=== PATIENT | female | born 1965 | race Caucasian/White ===

== ENCOUNTER 2016-11-12 06:40 | Day surgery (SDC) | payer OTHER ==
[2016-11-12] MEDS ORDERED: Propofol 200 MG/20 ML SDV ONE (07:03)
[2016-11-12] MEDS ORDERED: Rocuronium 10 MG/ML 10 ML Syringe ONE (07:03)
[2016-11-12] MEDS ORDERED: Dexamethasone 4 MG/ML 5 ML MDV ONE (07:03)
[2016-11-12] MEDS ORDERED: Ondansetron 4 MG/2 ML SDV ONE (07:03)
[2016-11-12] MEDS ORDERED: fentaNYL 250 MCG/5 ML SDV ONE (07:04)
[2016-11-12] MEDS: Lactated Ringers 1,000 ML IV SCH ×2 (07:04→16:41)
[2016-11-12] MEDS ORDERED: HYDROmorphone 2 MG/ML Syringe ONE (07:04)
[2016-11-12] MEDS ORDERED: Midazolam 1 MG/ML 2 ML SDV ONE (07:04)
[2016-11-12] MEDS ORDERED: Lidocaine 2% 5 ML SDV ONE (07:05)
[2016-11-12] MEDS ORDERED: Ketorolac 30 MG/ML SDV ONE (07:08)
--- NOTE | 2016-11-12 07:09 | PCM.PREANE ---
Preanesthetic Assessment - Anesthesia/Transfusion/Family Hx Anesthesia History: No Prior Anesthesia Family History of Anesthesia Reaction: No Transfusion History: No Prior Transfusion(s) Intubation History: Unknown - Review of Systems General: No Symptoms Pulmonary: No Symptoms Cardiovascular: No Symptoms Gastrointestinal: No symptoms Neurological: No Symptoms Other: Reports: None - Physical Assessment O2 Sat by Pulse Oximetry: 98 Respiratory Rate: 16 Vital Signs: Last Vital Signs Temp 37.0 C 11/12/16 07:02 Pulse 64 11/12/16 07:02 Resp 16 11/12/16 07:02 BP 142/82 H 11/12/16 07:02 Pulse Ox 98 11/12/16 07:02 Height: 1.66 m Weight: 91.626 kg ASA Class: 2 Mental Status: Alert & Oriented x3 Airway Class: Mallampati = 2 Dentition: Reports: Normal Dentition, [place](s) (x2 upper front) Thyro-Mental Finger Breadths: 3 Mouth Opening Finger Breadths: 3 ROM/Head Extension: Full Lungs: Clear to auscultation, Normal respiratory effort Cardiovascular: Regular Rate, Regular Rhythm - Allergies Allergies/Adverse Reactions: Allergies Allergy/AdvReac Type Severity Reaction Status Date / Time MSG Allergy Joint Pain Uncoded 11/07/16 10:03 - Blood Blood Available: No - Anesthesia Plan Pre-Op Medication Ordered: None - Acknowledgements Anesthesia Type Planned: General Anesthesia Pt an Appropriate Candidate for the Planned Anesthesia: Yes Alternatives and Risks of Anesthesia Discussed w Pt/Guardian: Yes Pt/Guardian Understands and Agrees with Anesthesia Plan: Yes PreAnesthesia Questionnaire HEENT History: Reports: Other (See Below) Other HEENT History: reading glasses, contacts Gastrointestinal History: Reports: Other (See Below) Other Gastrointestinal History: occasional heartburn 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, Endocrine/Metabolic History: Reports: Obesity/BMI 30+ Hematologic History: Reports: Anemia - Past Surgical History Head Surgeries/Procedures: Reports: None - SUBSTANCE USE Smoking Status *Q: Never Smoker Recreational Drug Use History: No - HOME MEDS Home Medications: Home Meds Acetaminophen/Diphenhydramine [Tylenol Pm Ex-Strength Caplet] 1 - 2 tab PO BEDTIME PRN 11/07/16 [History] Ferrous Gluconate 2 tab PO DAILY 11/07/16 [History] Multivitamin [Multivitamins] 1 tab PO DAILY 11/07/16 [History] Temazepam [Restoril] 30 mg PO BEDTIME PRN 11/07/16 [History] diphenhydrAMINE [Benadryl] 25 mg PO BEDTIME PRN 11/07/16 [History] - CURRENT (IN HOUSE) MEDS Current Meds: Current Medications Lactated Ringer's (Ringers, Lactated) 1,000 mls @ 125 mls/hr IV ASDIRECTED ANIKET Last Admin: 11/12/16 07:04 Dose: 125 mls/hr Discontinued Medications Dexamethasone (Dexamethasone) Confirm Administered Dose 20 mg .ROUTE .STK-MED ONE Stop: 11/12/16 07:04 Ondansetron HCl (Zofran) Confirm Administered Dose 4 mg .ROUTE .STK-MED ONE Stop: 11/12/16 07:04 Rocuronium [place] (Zemuron) Confirm Administered Dose 100 mg .ROUTE .STK-MED ONE Stop: 11/12/16 07:04
[2016-11-12] MEDS ORDERED: Sodium Chloride 0.9% 20 ML ONE (07:11)
[2016-11-12] MEDS ORDERED: Fluorescein 5 ML Vial ONE (07:26)
[2016-11-12 07:46] LABS: CHLORIDE,CL 108 mmol/L (98-110); SODIUM,NA 137 mmol/L (136-146)
[2016-11-12] MEDS ORDERED: fentaNYL 100 MCG/2 ML SDV IVPUSH PRN (08:41)
[2016-11-12] MEDS ORDERED: Furosemide 40 MG/4 ML VIAL ONE (09:26)
[2016-11-12] MEDS ORDERED: Belladonna Alkaloids/Opium 16.2-30 MG Supp RECTAL ONE (09:58)
[2016-11-12] MEDS ORDERED: Meperidine PF 25 MG/ML Syringe SUBCUT ONE (10:01)
[2016-11-12] MEDS ORDERED: Promethazine 25 MG/ML SDV IM PRN (10:02)
[2016-11-12] MEDS ORDERED: Ketorolac 30 MG/ML SDV IVPUSH ONE (10:02)
[2016-11-12] MEDS ORDERED: LORazepam 2 MG/ML MDV IVPUSH PRN (10:02)
[2016-11-12] MEDS ORDERED: Ondansetron 4 MG/2 ML SDV IVPUSH PRN (10:02)
[2016-11-12] MEDS ORDERED: HYDROmorphone 2 MG/ML Syringe IVPUSH PRN (10:02)
--- NOTE | 2016-11-12 10:02 | PCM.OPNOTE ---
- General Post-Op/Procedure Note Date of Surgery/Procedure: 11/12/16 Operative Procedure(s): total vaginal hysterectomy with bilateral salpingectomy and cystoscopy Findings: uterus 12 week size, with multiple fibroids, soft and boggy, normal appearing tubes and ovaries, Bladder mucosa appears normal with copious flow of urine from bilateral ureteral orifices. Pre Op Diagnosis: menorhagia with anemia, uterine fibroids. Post-Op Diagnosis: Same Anesthesia Technique: General ET tube Primary Surgeon: Vianney Phelan Secondary Surgeon: Amy Waldron Anesthesia Provider: Donavon Joaquin Bridge Contractor: Breann Alva Pathology: Uterus, right fallopian tube, left fallopian tube. Fluid Replacement, Intraop: 1,800 EBL in mLs: 150 Complications: None Known Condition: Good
[2016-11-12] MEDS ORDERED: Meperidine PF 50 MG/ML Syringe ONE (10:04)
[2016-11-12] MEDS ORDERED: Meperidine PF 25 MG/ML Syringe IVPUSH ONE (10:25)
--- NOTE | 2016-11-12 10:29 | PCM.POSTAN ---
POST ANESTHESIA ASSESSMENT - MENTAL STATUS Mental Status: alert, oriented - RESPIRATORY Respiratory Status: respiratory rate WNL, airway patent, O2 saturation stable - CARDIOVASCULAR CV Status: pulse rate WNL, blood pressure stable - GASTROINTESTINAL GI Status: no symptoms - PAIN Pain Score: 5 - POST OP HYDRATION Hydration Status: adequate & stable - OBSERVATIONS Free Text/Narrative:: no anesthesia problems
[2016-11-12] MEDS: Acetaminophen/oxyCODONE 325-5 MG Tab PO PRN ×3 (12:16→20:47)
[2016-11-12] MEDS: Ketorolac 30 MG/ML SDV IVPUSH SCH ×3 (14:06→22:24)
[2016-11-12 16:26] LABS: CHLORIDE,CL 107 mmol/L (98-110); SODIUM,NA 136 mmol/L (136-146)
--- NOTE | 2016-11-12 17:14 | PCM.SURGPN ---
- General Info Date of Service: 11/12/16 POD#: 0 Post-Op Diagnosis: uterine fibroids, menorrhagia with anemia Functional Status: Reports: pain controlled (catheter is bothersome toher.), tolerating diet. Denies: ambulating, urinating - Review of Systems General: Reports: No Symptoms HEENT: Reports: no symptoms Pulmonary: Reports: no symptoms Cardiovascular: Reports: No Symptoms Gastrointestinal: Reports: No symptoms Genitourinary: Reports: no symptoms Musculoskeletal: Reports: no symptoms Skin: Reports: no symptoms Neurological: Reports: No Symptoms Psychiatric: Reports: no symptoms - Patient Data Vitals - most recent: Last Vital Signs Temp 36.5 C 11/12/16 12:05 Pulse 50 L 11/12/16 12:05 Resp 15 11/12/16 12:05 BP 125/66 11/12/16 12:05 Pulse Ox 96 11/12/16 12:05 Weight - most recent: 91.626 kg I&O - last 24 hours: Intake & Output 11/12/16 11/12/16 11/12/16 06:59 14:59 22:59 Intake Total 3900 Output Total 700 Balance 3200 Lab Results last 24 hrs: Laboratory Results - last 24 hr 11/12/16 11/12/16 11/12/16 Range/Units 07:00 07:00 07:00 WBC 7.92 (4.0-11.0) K/uL RBC 4.51 (4.30-5.90) M/uL Hgb 10.1 L (12.0-16.0) g/dL Hct 33.5 L (36.0-46.0) % MCV 74.3 L (80.0-98.0) fL MCH 22.4 L (27.0-32.0) pg MCHC 30.1 L (31.0-37.0) g/dL RDW Std Deviation 60.4 (28.0-62.0) fl RDW Coeff of Mary 22 H (11.0-15.0) % Plt Count 385 (150-400) K/uL MPV 8.60 (7.40-12.00) fL Add Manual Diff Neutrophils % (Manual) (48.0-80.0) % Band Neutrophils % % Lymphocytes % (Manual) (16.0-40.0) % Monocytes % (Manual) (0.0-15.0) % Nucleated RBC % 0.0 /100WBC Absolute Seg Neuts Band Neutrophils # Lymphocytes # (Manual) Monocytes # (Manual) Nucleated RBCs # 0 K/uL Sodium 137 (136-146) mmol/L Potassium 3.9 (3.5-5.1) mmol/L Chloride 108 (98-110) mmol/L Carbon Dioxide 21 (21-31) mmol/L BUN 11 (6.0-23.0) mg/dL Creatinine 0.7 (0.6-1.5) mg/dL Est Cr Clr Drug Dosing 87.28 mL/min Estimated GFR (MDRD) > 60.0 ml/min Glucose 91 (60-110) mg/dL Calcium 8.4 L (8.8-10.8) mg/dL HCG, Qual NEGATIVE (NEG) Blood Type Antibody Screen 11/12/16 11/12/16 11/12/16 Range/Units 07:00 16:00 16:00 WBC 18.41 H (4.0-11.0) K/uL RBC 3.95 L (4.30-5.90) M/uL Hgb 9.0 L (12.0-16.0) g/dL Hct 29.5 L (36.0-46.0) % MCV 74.7 L (80.0-98.0) fL MCH 22.8 L (27.0-32.0) pg MCHC 30.5 L (31.0-37.0) g/dL RDW Std Deviation 60.7 (28.0-62.0) fl RDW Coeff of Mary 22 H (11.0-15.0) % Plt Count 318 (150-400) K/uL MPV 8.40 (7.40-12.00) fL Add Manual Diff YES Neutrophils % (Manual) 91 H (48.0-80.0) % Band Neutrophils % 7 % Lymphocytes % (Manual) 1 L (16.0-40.0) % Monocytes % (Manual) 1 (0.0-15.0) % Nucleated RBC % 0.0 /100WBC Absolute Seg Neuts 16.8 Band Neutrophils # 1.3 Lymphocytes # (Manual) 0.2 Monocytes # (Manual) 0.2 Nucleated RBCs # 0 K/uL Sodium 136 (136-146) mmol/L Potassium 4.3 (3.5-5.1) mmol/L Chloride 107 (98-110) mmol/L Carbon Dioxide 21 (21-31) mmol/L BUN 10 (6.0-23.0) mg/dL Creatinine 0.7 (0.6-1.5) mg/dL Est Cr Clr Drug Dosing 87.28 mL/min Estimated GFR (MDRD) > 60.0 ml/min Glucose 119 H (60-110) mg/dL Calcium 8.4 L (8.8-10.8) mg/dL HCG, Qual (NEG) Blood Type O POSITIVE Antibody Screen NEGATIVE Med Orders - Current: Current Medications Fentanyl (Sublimaze) 50 mcg IVPUSH Q5M PRN PRN Reason: Pain (severe 7-10) Stop: 11/13/16 08:41 Hydromorphone HCl (Dilaudid) 0.2 mg IVPUSH Q2H PRN PRN Reason: Pain (severe 7-10) Lactated Ringer's (Ringers, Lactated) 1,000 mls @ 125 mls/hr IV ASDIRECTED [facility] Last Admin: 11/12/16 16:41 Dose: 125 mls/hr Ketorolac Tromethamine (Toradol) 30 mg IVPUSH Q6H [facility] Stop: 11/17/16 10:06 Last Admin: 11/12/16 16:30 Dose: 30 mg Lorazepam (Ativan) 1 mg IVPUSH Q4H PRN PRN Reason: Anxiety Last Admin: 11/12/16 15:01 Dose: 1 mg Ondansetron HCl (Zofran) 4 mg IVPUSH Q6H PRN PRN Reason: Nausea/Vomiting Oxycodone/Acetaminophen (Percocet 325-5 Mg) 1 tab PO Q4H PRN PRN Reason: Pain (moderate 4-6) Last Admin: 11/12/16 16:40 Dose: 1 tab Promethazine HCl (Phenergan) 25 mg IM Q6H PRN PRN Reason: Nausea/Vomiting Discontinued Medications Belladonna Alkaloids/Opium (B & O Supprettes No. 15a) 1 supp RECTAL ONETIME ONE Stop: 11/12/16 09:59 Last Admin: 11/12/16 10:05 Dose: 1 supp Dexamethasone (Dexamethasone) Confirm Administered Dose 20 mg .ROUTE .STK-MED ONE Stop: 11/12/16 07:04 Fentanyl (Sublimaze) Confirm Administered Dose 250 mcg .ROUTE .STK-MED ONE Stop: 11/12/16 07:05 Fluorescein Sodium (Ak-Fluor) Confirm Administered Dose 5 ml .ROUTE .STK-MED ONE Stop: 11/12/16 07:27 Furosemide (Lasix) Confirm Administered Dose 40 mg .ROUTE .STK-MED ONE Stop: 11/12/16 09:27 Hydromorphone HCl (Dilaudid) Confirm Administered Dose 2 mg .ROUTE .STK-MED ONE Stop: 11/12/16 07:05 Sodium Chloride (Normal Saline) Confirm Administered Dose 20 mls @ as directed .ROUTE .ST-MED ONE Stop: 11/12/16 07:12 Ketorolac Tromethamine (Toradol) Confirm Administered Dose 30 mg .ROUTE .STK- MED ONE Stop: 11/12/16 07:09 Ketorolac Tromethamine (Toradol) 30 mg IVPUSH ONETIME ONE Stop: 11/12/16 10:03 Last Admin: 11/12/16 14:06 Dose: Not Given Lidocaine (Xylocaine-Mpf 2%) Confirm Administered Dose 5 ml .ROUTE .STK-MED ONE Stop: 11/12/16 07:06 Meperidine HCl (Demerol) 25 mg SUBCUT ONETIME ONE Stop: 11/12/16 10:02 Meperidine HCl (Demerol) Confirm Administered Dose 50 mg .ROUTE .STK-MED ONE Stop: 11/12/16 10:05 Last Admin: 11/12/16 14:06 Dose: Not Given Meperidine HCl (Demerol) 25 mg IVPUSH ONETIME ONE Stop: 11/12/16 10:26 Midazolam HCl (Versed 1 Mg/Ml) Confirm Administered Dose 2 mg .ROUTE .STK-MED ONE Stop: 11/12/16 07:05 Ondansetron HCl (Zofran) Confirm Administered Dose 4 mg .ROUTE .STK-MED ONE Stop: 11/12/16 07:04 Propofol (Diprivan 20 Ml) Confirm Administered Dose 200 mg .ROUTE .STK-MED ONE Stop: 11/12/16 07:04 Rocuronium [place] (Zemuron) Confirm Administered Dose 100 mg .ROUTE .STK-MED ONE Stop: 11/12/16 07:04 - Exam General: alert, oriented HEENT: Pupils equal Neck: supple Lungs: Clear to auscultation, Normal respiratory effort Cardiovascular: Regular Rate, Regular Rhythm Abdomen: bowel sounds present, soft, no tenderness, no distension Extremities: no edema - Problem List & Annotations (1) Menorrhagia SNOMED Code(s): 904380887 Code(s): N92.0 - EXCESSIVE AND FREQUENT MENSTRUATION WITH REGULAR CYCLE Status: Acute Current Visit: Yes (2) Uterine fibroid SNOMED Code(s): 85982169 Code(s): D25.9 - LEIOMYOMA OF UTERUS, UNSPECIFIED Status: Acute Current Visit: Yes Qualifiers: Uterine leiomyoma location: submucous Qualified Code(s): D25.0 - Submucous leiomyoma of uterus - Problem List Review Problem List Initiated/Reviewed/Updated: Yes - My Orders Last 24 Hours: Active Orders 24 hr Category Date Time Status Patient Status [ADT] Routine ADT 11/12/16 10:06 Active Antiembolic Devices [RC] PER UNIT ROUTINE Care 11/12/16 10:06 Active Bradycardia-Neuroaxis [employer] [RC] ROUTINE Care 11/12/16 08:39 Active Bradycardia-Neuroaxis [employer] [RC] ROUTINE Care 11/12/16 08:41 Active Hypertension-Neuroaxis [employer] [RC] ROUTINE Care 11/12/16 08:39 Active Hypertension-Neuroaxis [employer] [RC] ROUTINE Care 11/12/16 08:41 Active Hypotension-Neuroaxis [employer] [RC] ROUTINE Care 11/12/16 08:39 Active Hypotension-Neuroaxis [employer] [RC] ROUTINE Care 11/12/16 08:41 Active Notify Provider Intake and Out [RC] ASDIRECTED Care 11/12/16 10:06 Active Notify Provider Vital Signs [RC] ASDIRECTED Care 11/12/16 10:06 Active RT Incentive Spirometry [RC] Q2HWA Care 11/12/16 10:06 Active Up With Assistance [RC] PER UNIT ROUTINE Care 11/12/16 10:06 Active Up ad [place] [RC] PER UNIT ROUTINE Care 11/12/16 10:06 Active Urinary Catheter Removal [RC] Per Unit Routine Care 11/12/16 10:06 Active Vital Signs [RC] PER UNIT ROUTINE Care 11/12/16 10:06 Active Regular Diet [DIET] Diet 11/12/16 Lunch Active Acetaminophen/oxyCODONE [Percocet 325-5 MG] Med 11/12/16 10:02 Active 1 tab PO Q4H PRN HYDROmorphone [Dilaudid] Med 11/12/16 10:02 Active 0.2 mg IVPUSH Q2H PRN Ketorolac [Toradol] Med 11/12/16 10:15 Active 30 mg IVPUSH Q6H LORazepam [Ativan] Med 11/12/16 10:02 Active 1 mg IVPUSH Q4H PRN Lactated Ringers [Ringers, Lactated] 1,000 ml Med 11/12/16 06:30 Active IV ASDIRECTED Ondansetron [Zofran] Med 11/12/16 10:02 Active 4 mg IVPUSH Q6H PRN Promethazine [Phenergan] Med 11/12/16 10:02 Active 25 mg IM Q6H PRN fentaNYL [Sublimaze] Med 11/12/16 08:41 Active 50 mcg IVPUSH Q5M PRN Heat Therapy [OM.PC] Routine Oth 11/12/16 10:02 Ordered Peripheral IV Discontinue [OM.PC] Routine Oth 11/12/16 10:06 Ordered Sequential Compression Device [OM.PC] Per Unit Routine Oth 11/12/16 10:06 Ordered Resuscitation Status Routine Resus Stat 11/12/16 10:02 Ordered Medication Orders Fentanyl (Sublimaze) 50 mcg IVPUSH Q5M PRN PRN Reason: Pain (severe 7-10) Stop: 11/13/16 08:41 Hydromorphone HCl (Dilaudid) 0.2 mg IVPUSH Q2H PRN PRN Reason: Pain (severe 7-10) Lactated Ringer's (Ringers, Lactated) 1,000 mls @ 125 mls/hr IV ASDIRECTED [facility] Last Admin: 11/12/16 16:41 Dose: 125 mls/hr Infusion: 11/12/16 15:04 Dose: 125 mls/hr Admin: 11/12/16 07:04 Dose: 125 mls/hr Ketorolac Tromethamine (Toradol) 30 mg IVPUSH Q6H [facility] Stop: 11/17/16 10:06 Last Admin: 11/12/16 16:30 Dose: 30 mg Admin: 11/12/16 14:06 Dose: Not Given Lorazepam (Ativan) 1 mg IVPUSH Q4H PRN PRN Reason: Anxiety Last Admin: 11/12/16 15:01 Dose: 1 mg Ondansetron HCl (Zofran) 4 mg IVPUSH Q6H PRN PRN Reason: Nausea/Vomiting Oxycodone/Acetaminophen (Percocet 325-5 Mg) 1 tab PO Q4H PRN PRN Reason: Pain (moderate 4-6) Last Admin: 11/12/16 16:40 Dose: 1 tab Admin: 11/12/16 12:16 Dose: 2 tab Promethazine HCl (Phenergan) 25 mg IM Q6H PRN PRN Reason: Nausea/Vomiting - Assessment Assessment (Free Text/Narrative):: POD#0 after TVH, bilateral salpingectomy and cystoscopy. Complaint of suprapubic cramps and pain, tolerating diet, no nausea. - Plan Plan (Free Text/Narrative):: Bladder scan shows no retained urine, ok to remove catheter, ambulate. Hgb is appropriate relative to preop. She wanted to go home this evening, however, given that she has not yet ambulated and pain is not completely controlled, I have recommended that she stay until am unless status changes in the next 2 hours.
--- NOTE | 2016-11-12 21:02 | OR ---
SURGEON: Vianney Phelan M.D. DATE OF PROCEDURE: 11/12/2016 PREOPERATIVE DIAGNOSES: 1. Menorrhagia. 2. Uterine fibroids. 3. Anemia. POSTOPERATIVE DIAGNOSES: 1. Menorrhagia. 2. Uterine fibroids. 3. Anemia. PROCEDURE: Total vaginal hysterectomy with bilateral salpingectomy and cystoscopy. LIGHT ARMORED RECONNAISSANCE OFFICER: Amy Waldron M.D. ANESTHESIA: General endotracheal. FLUIDS: 1800 mL crystalloid. ESTIMATED BLOOD LOSS: 150 mL. FINDINGS: Uterus enlarged to 12 week size, boggy with multiple fibroids. Bilateral ovaries and tubes appeared normal. Upon cystoscopy, there was no evidence of any trauma to the bladder mucosa. Bilateral ureteral orifices appeared normal with good copious flow of bright green urine. COMPLICATIONS: None known. DISPOSITION: Stable to recovery. PATHOLOGY SPECIMENS: The uterus, right fallopian tube, and left fallopian tube. BRIEF HISTORY: This is a 51-year-old female. She presents with a long history of very heavy and painful periods with anemia, taking iron. Her most recent hemoglobin prior to the surgery was 9.2 and on day of the surgery on iron, was 10.1. She had an ultrasound that showed a 2.6 cm fibroid approximately 60% within the endometrial cavity as well as 2 other small polypoid structures. She was offered hysteroscopy, hysteroscopic myomectomy with possible polypectomy versus hysterectomy. She desired to proceed with a vaginal hysterectomy with risks discussed including bleeding, infection, injury to bowel, bladder, blood vessels, or other organs, risk of thromboembolic event, and risk of anesthesia. I also reviewed a small risk of laparotomy and a risk of change in sexual function. She would like removal of her tubes for risk reduction of ovarian cancer if this does not add significantly to the surgery. Immediately prior to the surgery, she mentioned concern about stress incontinence. I explained to her that evaluation for stress incontinence would include a complete workup including cystometry, which has not been performed; however, should she desire intervention for stress incontinence in the future, it could be done as a simple outpatient procedure and she expressed understanding. DESCRIPTION OF PROCEDURE: With the patient in dorsal lithotomy position and under adequate general endotracheal anesthesia, the abdomen was prepped with chlorhexidine. The vagina and perineum were prepped with Betadine and draped in usual fashion for vaginal surgery. Paredes catheter had been placed. SCDs were in place and she received 2 g of Ancef IV. After an appropriate time-out was performed, bimanual examination revealed a 12 week size, mobile, soft uterus. Speculum was placed posteriorly. A right angle retractor was placed anteriorly with the Paredes catheter in place. The cervix was grasped with a Jennifer tenaculum and circumscribed using electrocautery. The vaginal mucosa was pushed away from the cervix. The posterior cul-de-sac was entered sharply and the Elier-Auvard speculum was placed posteriorly. The anterior vaginal mucosa was dissected from the lower section of the uterus and the peritoneum had not yet been entered; therefore, the bilateral uterosacral ligaments were cross clamped with a Stefania clamp, cut, and ligated using a Stefania suture of 0 Polysorb. At this point, the anterior cul-de-sac was then entered and a finger was placed into the peritoneal cavity. This was removed. The peritoneum was palpated as well as the Paredes catheter within the bladder and this being completed, the right angle retractor was placed anteriorly. Three additional pedicles were taken on the right and the left using a Stefania clamp, cutting, and a Stefania ligature using 2-0 Polysorb until the utero-ovarian ligaments were identified, which were cross clamped, cut, and ligated using a 2-point suture of 2-0 Polysorb. The uterus was then delivered vaginally. The pedicles were inspected. The retained uterosacral ligament and pedicles were ligated to the vaginal apices bilaterally. The tubes were identified and grasped with a [place] clamp. The mesosalpinx was cross clamped using a curved Zeppelin clamp and cut and ligated using a 3-point suture of 2-0 Polysorb. These were retained for inspection. This was repeated on the opposite side. The bilateral ovarian pedicles were carefully inspected and were completely hemostatic. Therefore, they were released. Just above the uterosacral ligament on the right, there was an area of bleeding that was captured within a Stefania clamp and ligated using a Stefania ligature of 2-0 Polysorb. After careful inspection of all of the pedicles, any areas of bleeding that were noted, had been cauterized or ligated. All of the pedicles were then released and the vaginal mucosa was closed with a running lock suture of 0 Polysorb. IV fluorescein had been given. Cystoscopy was performed using sterile water as the distending medium. There was no evidence of any trauma to the bladder mucosa. Bilateral ureteral orifices were identified. There was copious flow of bright green urine from both ureteral orifices. This being completed, the Paredes catheter was replaced. A speculum was placed in the vagina. The cuff was completely hemostatic. Speculum was removed. Final sponge, needle, and instrument counts were reported as correct. There were no known complications. The patient was transferred to recovery in good condition. CORBIN ELLINGTON /[id number]
[2016-11-12] MEDS ORDERED: Docusate Sodium 100 MG Cap PO PRN (23:32)
[2016-11-13] MEDS: Acetaminophen/oxyCODONE 325-5 MG Tab PO PRN (04:05)
--- NOTE | 2016-11-13 06:05 | PCM.SURGPN ---
- General Info Date of Service: 11/13/16 POD#: 1 Post-Op Diagnosis: uterine fibroids, menorrhagia with anemia Functional Status: Reports: pain controlled, tolerating diet, ambulating, urinating, other (pain control is much better, ambulating and urinating without difficulty.) - Review of Systems General: Reports: No Symptoms HEENT: Reports: no symptoms Pulmonary: Reports: no symptoms Cardiovascular: Reports: No Symptoms Gastrointestinal: Reports: No symptoms Genitourinary: Reports: no symptoms Musculoskeletal: Reports: no symptoms Skin: Reports: no symptoms Neurological: Reports: No Symptoms Psychiatric: Reports: no symptoms - Patient Data Vitals - most recent: Last Vital Signs Temp 36.8 C 11/12/16 20:00 Pulse 65 11/12/16 23:00 Resp 17 11/12/16 23:00 BP 128/60 11/12/16 20:00 Pulse Ox 95 11/12/16 23:00 Weight - most recent: 91.626 kg I&O - last 24 hours: Intake & Output 11/12/16 11/12/16 11/13/16 14:59 22:59 06:59 Intake Total 3900 Output Total 700 575 Balance 3200 -575 Lab Results last 24 hrs: Laboratory Results - last 24 hr 11/12/16 11/12/16 11/12/16 Range/Units 07:00 07:00 07:00 WBC 7.92 (4.0-11.0) K/uL RBC 4.51 (4.30-5.90) M/uL Hgb 10.1 L (12.0-16.0) g/dL Hct 33.5 L (36.0-46.0) % MCV 74.3 L (80.0-98.0) fL MCH 22.4 L (27.0-32.0) pg MCHC 30.1 L (31.0-37.0) g/dL RDW Std Deviation 60.4 (28.0-62.0) fl RDW Coeff of Mary 22 H (11.0-15.0) % Plt Count 385 (150-400) K/uL MPV 8.60 (7.40-12.00) fL Add Manual Diff Neutrophils % (Manual) (48.0-80.0) % Band Neutrophils % % Lymphocytes % (Manual) (16.0-40.0) % Monocytes % (Manual) (0.0-15.0) % Nucleated RBC % 0.0 /100WBC Absolute Seg Neuts Band Neutrophils # Lymphocytes # (Manual) Monocytes # (Manual) Nucleated RBCs # 0 K/uL Sodium 137 (136-146) mmol/L Potassium 3.9 (3.5-5.1) mmol/L Chloride 108 (98-110) mmol/L Carbon Dioxide 21 (21-31) mmol/L BUN 11 (6.0-23.0) mg/dL Creatinine 0.7 (0.6-1.5) mg/dL Est Cr Clr Drug Dosing 87.28 mL/min Estimated GFR (MDRD) > 60.0 ml/min Glucose 91 (60-110) mg/dL Calcium 8.4 L (8.8-10.8) mg/dL HCG, Qual NEGATIVE (NEG) Blood Type Antibody Screen 11/12/16 11/12/16 11/12/16 Range/Units 07:00 16:00 16:00 WBC 18.41 H (4.0-11.0) K/uL RBC 3.95 L (4.30-5.90) M/uL Hgb 9.0 L (12.0-16.0) g/dL Hct 29.5 L (36.0-46.0) % MCV 74.7 L (80.0-98.0) fL MCH 22.8 L (27.0-32.0) pg MCHC 30.5 L (31.0-37.0) g/dL RDW Std Deviation 60.7 (28.0-62.0) fl RDW Coeff of Mary 22 H (11.0-15.0) % Plt Count 318 (150-400) K/uL MPV 8.40 (7.40-12.00) fL Add Manual Diff YES Neutrophils % (Manual) 91 H (48.0-80.0) % Band Neutrophils % 7 % Lymphocytes % (Manual) 1 L (16.0-40.0) % Monocytes % (Manual) 1 (0.0-15.0) % Nucleated RBC % 0.0 /100WBC Absolute Seg Neuts 16.8 Band Neutrophils # 1.3 Lymphocytes # (Manual) 0.2 Monocytes # (Manual) 0.2 Nucleated RBCs # 0 K/uL Sodium 136 (136-146) mmol/L Potassium 4.3 (3.5-5.1) mmol/L Chloride 107 (98-110) mmol/L Carbon Dioxide 21 (21-31) mmol/L BUN 10 (6.0-23.0) mg/dL Creatinine 0.7 (0.6-1.5) mg/dL Est Cr Clr Drug Dosing 87.28 mL/min Estimated GFR (MDRD) > 60.0 ml/min Glucose 119 H (60-110) mg/dL Calcium 8.4 L (8.8-10.8) mg/dL HCG, Qual (NEG) Blood Type O POSITIVE Antibody Screen NEGATIVE Med Orders - Current: Current Medications Docusate Sodium (Colace) 100 mg PO BID PRN PRN Reason: Constipation Last Admin: 11/12/16 23:59 Dose: 100 mg Fentanyl (Sublimaze) 50 mcg IVPUSH Q5M PRN PRN Reason: Pain (severe 7-10) Stop: 11/13/16 08:41 Hydromorphone HCl (Dilaudid) 0.2 mg IVPUSH Q2H PRN PRN Reason: Pain (severe 7-10) Lactated Ringer's (Ringers, Lactated) 1,000 mls @ 125 mls/hr IV ASDIRECTED [facility] Last Admin: 11/12/16 16:41 Dose: 125 mls/hr Ketorolac Tromethamine (Toradol) 30 mg IVPUSH Q6H [facility] Stop: 11/17/16 10:06 Last Admin: 11/12/16 22:24 Dose: 30 mg Lorazepam (Ativan) 1 mg IVPUSH Q4H PRN PRN Reason: Anxiety Last Admin: 11/12/16 15:01 Dose: 1 mg Ondansetron HCl (Zofran) 4 mg IVPUSH Q6H PRN PRN Reason: Nausea/Vomiting Oxycodone/Acetaminophen (Percocet 325-5 Mg) 1 tab PO Q4H PRN PRN Reason: Pain (moderate 4-6) Last Admin: 11/13/16 04:05 Dose: 1 tab Promethazine HCl (Phenergan) 25 mg IM Q6H PRN PRN Reason: Nausea/Vomiting Discontinued Medications Belladonna Alkaloids/Opium (B & O Supprettes No. 15a) 1 supp RECTAL ONETIME ONE Stop: 11/12/16 09:59 Last Admin: 11/12/16 10:05 Dose: 1 supp Dexamethasone (Dexamethasone) Confirm Administered Dose 20 mg .ROUTE .STK-MED ONE Stop: 11/12/16 07:04 Fentanyl (Sublimaze) Confirm Administered Dose 250 mcg .ROUTE .STK-MED ONE Stop: 11/12/16 07:05 Fluorescein Sodium (Ak-Fluor) Confirm Administered Dose 5 ml .ROUTE .STK-MED ONE Stop: 11/12/16 07:27 Furosemide (Lasix) Confirm Administered Dose 40 mg .ROUTE .STK-MED ONE Stop: 11/12/16 09:27 Hydromorphone HCl (Dilaudid) Confirm Administered Dose 2 mg .ROUTE .ST-MED ONE Stop: 11/12/16 07:05 Sodium Chloride (Normal Saline) Confirm Administered Dose 20 mls @ as directed .ROUTE .[facility]-MED ONE Stop: 11/12/16 07:12 Ketorolac Tromethamine (Toradol) Confirm Administered Dose 30 mg .ROUTE .ST- MED ONE Stop: 11/12/16 07:09 Ketorolac Tromethamine (Toradol) 30 mg IVPUSH ONETIME ONE Stop: 11/12/16 10:03 Last Admin: 11/12/16 14:06 Dose: Not Given Lidocaine (Xylocaine-Mpf 2%) Confirm Administered Dose 5 ml .ROUTE .STK-MED ONE Stop: 11/12/16 07:06 Meperidine HCl (Demerol) 25 mg SUBCUT ONETIME ONE Stop: 11/12/16 10:02 Meperidine HCl (Demerol) Confirm Administered Dose 50 mg .ROUTE .ST-MED ONE Stop: 11/12/16 10:05 Last Admin: 11/12/16 14:06 Dose: Not Given Meperidine HCl (Demerol) 25 mg IVPUSH ONETIME ONE Stop: 11/12/16 10:26 Midazolam HCl (Versed 1 Mg/Ml) Confirm Administered Dose 2 mg .ROUTE .STK-MED ONE Stop: 11/12/16 07:05 Ondansetron HCl (Zofran) Confirm Administered Dose 4 mg .ROUTE .STK-MED ONE Stop: 11/12/16 07:04 Propofol (Diprivan 20 Ml) Confirm Administered Dose 200 mg .ROUTE .STK-MED ONE Stop: 11/12/16 07:04 Rocuronium [place] (Zemuron) Confirm Administered Dose 100 mg .ROUTE .STK-MED ONE Stop: 11/12/16 07:04 - Exam General: alert, oriented Cardiovascular: Regular Rate, Regular Rhythm Extremities: no edema Psy/Mental Status: alert - Problem List & Annotations (1) Menorrhagia SNOMED Code(s): 373025531 Code(s): N92.0 - EXCESSIVE AND FREQUENT MENSTRUATION WITH REGULAR CYCLE Status: Acute Current Visit: Yes (2) Uterine fibroid SNOMED Code(s): 33827808 Code(s): D25.9 - LEIOMYOMA OF UTERUS, UNSPECIFIED Status: Acute Current Visit: Yes Qualifiers: Uterine leiomyoma location: submucous Qualified Code(s): D25.0 - Submucous leiomyoma of uterus - Problem List Review Problem List Initiated/Reviewed/Updated: Yes - My Orders Last 24 Hours: Active Orders 24 hr Category Date Time Status Patient Status [ADT] Routine ADT 11/12/16 10:06 Active Antiembolic Devices [RC] PER UNIT ROUTINE Care 11/12/16 10:06 Active Bradycardia-Neuroaxis [employer] [RC] ROUTINE Care 11/12/16 08:39 Active Bradycardia-Neuroaxis [employer] [RC] ROUTINE Care 11/12/16 08:41 Active Hypertension-Neuroaxis [employer] [RC] ROUTINE Care 11/12/16 08:39 Active Hypertension-Neuroaxis [employer] [RC] ROUTINE Care 11/12/16 08:41 Active Hypotension-Neuroaxis [employer] [RC] ROUTINE Care 11/12/16 08:39 Active Hypotension-Neuroaxis [employer] [RC] ROUTINE Care 11/12/16 08:41 Active Notify Provider Intake and Out [RC] ASDIRECTED Care 11/12/16 10:06 Active Notify Provider Vital Signs [RC] ASDIRECTED Care 11/12/16 10:06 Active RT Incentive Spirometry [RC] Q2HWA Care 11/12/16 10:06 Active Up With Assistance [RC] PER UNIT ROUTINE Care 11/12/16 10:06 Active Up ad [place] [RC] PER UNIT ROUTINE Care 11/12/16 10:06 Active Vital Signs [RC] PER UNIT ROUTINE Care 11/12/16 10:06 Active Regular Diet [DIET] Diet 11/12/16 Lunch Active Acetaminophen/oxyCODONE [Percocet 325-5 MG] Med 11/12/16 10:02 Active 1 tab PO Q4H PRN Docusate Sodium [Colace] Med 11/12/16 23:32 Active 100 mg PO BID PRN HYDROmorphone [Dilaudid] Med 11/12/16 10:02 Active 0.2 mg IVPUSH Q2H PRN Ketorolac [Toradol] Med 11/12/16 10:15 Active 30 mg IVPUSH Q6H LORazepam [Ativan] Med 11/12/16 10:02 Active 1 mg IVPUSH Q4H PRN Lactated Ringers [Ringers, Lactated] 1,000 ml Med 11/12/16 06:30 Active IV ASDIRECTED Ondansetron [Zofran] Med 11/12/16 10:02 Active 4 mg IVPUSH Q6H PRN Promethazine [Phenergan] Med 11/12/16 10:02 Active 25 mg IM Q6H PRN fentaNYL [Sublimaze] Med 11/12/16 08:41 Active 50 mcg IVPUSH Q5M PRN Heat Therapy [OM.PC] Routine Oth 11/12/16 10:02 Ordered Peripheral IV Discontinue [OM.PC] Routine Oth 11/12/16 10:06 Ordered Sequential Compression Device [OM.PC] Per Unit Routine Oth 11/12/16 10:06 Ordered Resuscitation Status Routine Resus Stat 11/12/16 10:02 Ordered Medication Orders Docusate Sodium (Colace) 100 mg PO BID PRN PRN Reason: Constipation Last Admin: 11/12/16 23:59 Dose: 100 mg Fentanyl (Sublimaze) 50 mcg IVPUSH Q5M PRN PRN Reason: Pain (severe 7-10) Stop: 11/13/16 08:41 Hydromorphone HCl (Dilaudid) 0.2 mg IVPUSH Q2H PRN PRN Reason: Pain (severe 7-10) Lactated Ringer's (Ringers, Lactated) 1,000 mls @ 125 mls/hr IV ASDIRECTED [facility] Last Admin: 11/12/16 16:41 Dose: 125 mls/hr Infusion: 11/12/16 15:04 Dose: 125 mls/hr Admin: 11/12/16 07:04 Dose: 125 mls/hr Ketorolac Tromethamine (Toradol) 30 mg IVPUSH Q6H [facility] Stop: 11/17/16 10:06 Last Admin: 11/12/16 22:24 Dose: 30 mg Admin: 11/12/16 16:30 Dose: 30 mg Admin: 11/12/16 14:06 Dose: Not Given Lorazepam (Ativan) 1 mg IVPUSH Q4H PRN PRN Reason: Anxiety Last Admin: 11/12/16 15:01 Dose: 1 mg Ondansetron HCl (Zofran) 4 mg IVPUSH Q6H PRN PRN Reason: Nausea/Vomiting Oxycodone/Acetaminophen (Percocet 325-5 Mg) 1 tab PO Q4H PRN PRN Reason: Pain (moderate 4-6) Last Admin: 11/13/16 04:05 Dose: 1 tab Admin: 11/12/16 20:47 Dose: 1 tab Admin: 11/12/16 16:40 Dose: 1 tab Admin: 11/12/16 12:16 Dose: 2 tab Promethazine HCl (Phenergan) 25 mg IM Q6H PRN PRN Reason: Nausea/Vomiting - Assessment Assessment (Free Text/Narrative):: POD#1 after TVH. Stable, pain much improved, tolerating diet, ambulating and urinating, would like to go home. - Plan Plan (Free Text/Narrative):: Dismiss to home, discharge instructions reviewed.
[2016-11-13 07:07] VITALS: BP 122/57
== END 2016-11-13 06:55 | disposition home or self-care (01) ==
LOC: MW.SDS 06:40 → MW.OB 10:06 → MW.SDS 11-13 06:55
PROVIDERS: ATTEND Obstetrics & Gynecology
PROC: 0UT97ZZ Resection of Uterus, Via Natural or Artificial Opening (ICD-10-PCS; principal; 2016-11-12)
PROC: 0UTC7ZZ Resection of Cervix, Via Natural or Artificial Opening (ICD-10-PCS; 2016-11-12)
PROC: 0UT77ZZ Resection of Bilateral Fallopian Tubes, Via Natural or Artificial Opening (ICD-10-PCS; 2016-11-12)
DX: N84.0 Polyp of corpus uteri (principal); D25.9 Leiomyoma of uterus, unspecified; N88.8 Other specified noninflammatory disorders of cervix uteri; D64.9 Anemia, unspecified; E66.9 Obesity, unspecified; Z79.899 Other long term (current) drug therapy; Z98.890 Other specified postprocedural states; Z91.048 Other nonmedicinal substance allergy status; Z68.33 Body mass index [BMI] 33.0-33.9, adult
CPT/HCPCS: 36415; 58291; 80048; 84703; 85025; 85027; 86850; 86900; 86901; 88302; 88307; A9270; J1100; J1170; J1885; J1940; J2060; J2250; J2405; J3010; J7120; 00944; J2704